=== PATIENT | female | born 1995 | race Caucasian/White ===

== ENCOUNTER 2022-04-15 16:09 | Outpatient (CLI) | payer MEDICAID ==
[~2022-04-15] VITALS: Ht 170.2 cm; Wt 130.9 kg
--- NOTE | 2022-04-15 16:15 | NUR ---
1615 - PATIENT AMBULATORY TO LR6. PATIENT REPORTS TO UNIT FROM CLINIC AFTER VISITING CLINIC FOR HYPEREMESIS. CLINIC CALLED UNIT WITH REPORT AND ORDERS PRIOR TO PATIENT ARRIVAL. PATIENT ARRIVES TO UNIT WITH [employer] MEAL AND SONIC DRINK IN HAND. 1620 - PATIENT ORIENTED TO ROOM. PATIENT CHANGES INTO GOWN. PLAN OF CARE REVIEWED. PATIENT TEARFUL. PATIENT REPORTS RECEIVING IVF DAILY FOR HYPEREMESIS [facility]IA [facility] IN [place] PRIOR TO MOVING TO [place]. PATIENT ALSO REPORTS RECEIVING FEEDINGS VIA NG TUBE FOR HYPEREMESIS IN [place]. 1624 - PATIENT ON MONITOR. IV STARTED AND LR INITIATED ORDERED. CARE ONGOING.
[2022-04-15] MEDS ORDERED: LAMICTAL150 MG PO (16:27)
[2022-04-15] MEDS ORDERED: ZOLOFT 100MG100 MG PO (16:27)
[2022-04-15] MEDS ORDERED: MIRTAZAPINE7.5 MG PO (16:28)
[2022-04-15 16:58] VITALS: BP 125/62; PULSE 101
--- NOTE | 2022-04-15 17:15 | NUR ---
1715 - MD ROSCOE UPDATED ON PATIENT STATUS. STRIP REVIEWED BY . DISCHARGE ORDER RECEIVED.
--- NOTE | 2022-04-15 17:25 | NUR ---
1725 - DISCHARGE INSTRUCTIONS REVIEWED WITH PATIENT AND SPOUSE. QUESTIONS ANSWERED. 1730 - PATIENT AMBULATORY OFF UNIT WITH SPOUSE.
== END 2022-04-15 17:30 | disposition home or self-care (01) ==
LOC: LDRO 16:09
DX: O21.0 Mild hyperemesis gravidarum (principal); Z3A.25 25 weeks gestation of pregnancy
CPT/HCPCS: J2550; J7120

== ENCOUNTER 2022-04-26 08:30 | Outpatient (RCR) | payer MEDICAID ==
[2022-04-19 09:16] VITALS: BP 110/71; PULSE 95; TEMP 98.8
--- NOTE | 2022-04-19 11:30 | NUR ---
Pt requested that IVs be kept in place between EU appts M/W/. Dr Cruz's office was contacted and will send orders that INT may be left in place. After discussion with pt, it is agreed that today's IV will be DC'd due to placement on hand with potential for accidental dislodgement or bumping of site. She agrees, IV DC'd with catheter intact. IV site cares, precautions, and s/s of concerns warrenting pt to contact EU once IV is left in place between visits discussed and pt expresses understanding. Unit phone number provided to pt. She is escorted out of dept with steady gait.
[2022-04-21 08:43] VITALS: BP 130/75; PULSE 99; TEMP 98.4
--- NOTE | 2022-04-21 11:40 | NUR ---
pt infusion finished. per request of pt and per order, iv left in left forearm. IV padded and wrapped in ladonna wrap. pt instructed on home care. will return for next infusion
[2022-04-23 10:07] VITALS: BP 112/77; PULSE 97; TEMP 99.3
--- NOTE | 2022-04-23 12:10 | NUR ---
Previous IV to LFA was DC on arrival due to infiltration. IV to Rt hand removed, site wrapped with coban. Pt ate crackers, peanut butter and ice chips while in EU. She exits dept at this time with steady gait.
[~2022-04-26] VITALS: Ht 170.2 cm; Wt 131.7 kg
[~2022-04-26 08:30] MED LIST: LAMICTAL150 MG PO; MIRTAZAPINE7.5 MG PO; ZOLOFT 100MG100 MG PO
[2022-04-26 08:44] VITALS: BP 119/77; PULSE 99; TEMP 98.7
[2022-04-26] MEDS ORDERED: PHENERGAN25 MG RC (08:48)
--- NOTE | 2022-04-26 10:51 | NUR ---
IV site padded and wrapped with APOORVA wrap per pt's request to leave site in. She rested through infusion, states she is feeling slightly better after fluids. She exits dept with steady gait.
--- NOTE | 2022-04-28 10:04 | NUR ---
Pt did not show for today's scheduled appt.Unable to reach pt.Message left for pt.
--- NOTE | 2022-04-28 16:33 | NUR ---
Pt did not show for this am 0830 apt time.Attempted to reach patient.Pt was discharge Tuesday with PIV in place.Message left for pt to return call.At aproximately 1130, pt returned call.Per pt report she told nurse on Tuesday she had to work but was "unsure of her schedule and possibly would not make today's apt." Pt requests to cancel Tuesday's apt.Per pt she will call to schedule further appointments.Attempted to explain pt is scheduled on TUE,Tue, and Fridays. This nurse explained to patient that a PIV was left in place and would need to be assessed and flushed.Per patient reports she has been flushing IV at home.When attempting to clarifiy with patient what she has been flushing INT with,she reports she had stuff from previous infusions at another facility.I explained to patient that we do not have orders from her current physician to do this and INT would need to be removed f no further appointments scheduled until patient's calls back. Pt reports she "will just remove it herself." Encouraged pt to return to hospital after she gets off work today to remove PIV.Pt reports she gets off work at 830pm tonight and she will go to ED department to request INT removed.
--- NOTE | 2022-04-29 14:15 | NUR ---
Order received via fax from office to hold infusions.To the best of my knowlegde pt did not come to have INT removed as arranged by me with pt yesterday.Message left on pt phone this am to clarify if she came to ED to have it removed, no callback received.Message left with office in reference to IV site. Will await callback.
== END 2022-04-29 14:25 | disposition home or self-care (01) ==
LOC: EUO 08:30
DX: Z51.81 Encounter for therapeutic drug level monitoring (principal)
CPT/HCPCS: J2550; J7120

== ENCOUNTER 2022-05-27 22:45 | Outpatient (CLI) | payer MEDICAID ==
[~2022-05-27] VITALS: Ht 170.2 cm; Wt 130.9 kg
[~2022-05-27 22:45] MED LIST changes: +PHENERGAN25 MG RC
--- NOTE | 2022-05-27 23:00 | NUR ---
2300- PT PRESENTS TO LDR COMPLAINING OF NAUSEA AND VOMITTING, TO ROOM LR2 PER WHEELCHAIR, CHANGED INTO GOWN. 2321- EFM X2 APPLIED. PT DENIES LEAKING FLUID, VAGINAL BLEEDING, OR CONTRACTIONS. STATE SHE IS FEELING BABY MOVE NORMAL. PLAN OF CARE DISCUSSED AND QUESTIONS ANSWERED. PT STATES SHE JUST ARRIVED HOME TODAY FROM [place] ON A PLANE. STATES SHE WAS HOSPITALIZED WITH [facility]PT[facility] PNEUMONIA IN [place] FROM 05/09 UNTIL 05/14. SHE STATES SHE HAS NOT BEEN ABLE TO KEEP FOOD DOWN FOR 3 DAYS AND FLUIDS FOR THE LAST DAY. 2345- DR BULL UPDATED CHARTED, ORDERS RECEIVED. 2355- NURSE AT BEDSIDE, MONITORS ADJUSTED. DIFFICULT TO OBTAIN CONTINUOUS TRACING DUE TO MATERNAL HABITUS AND POSITION. PT HAD EPISODE OF GREEN BILIOUS VOMITTING. CLEAN GOWN PROVIDED. 0020- PT UP TO THE BATHROOM BEFORE IV ATTEMPT. STATES SHE FEELS LIKE SHE IS GOING TO HAVE DIARRHEA. 0028- PT BACK TO BED AND MONITORS ADJUSTED. 0030- IV ATTEMPT X2 UNSUCCESSFUL BY THIS RN. [employer] MACHINE OPERATOR NOTIFIED FOR HELP WITH IV START. PT HAS EPISODE OF GREEN BILIOUS VOMIT. CLEAN GOWN PROVIDED. 0045- MILADYS, [employer] MACHINE OPERATOR AT BEDSIDE TO ATTEMPT IV. UNSUCCESSFUL X3. 0055- [place] AT BEDSIDE FOR IV START. 0100- IV START TO RIGHT AC X1, BLOOD DRAWN FOR LABS. LR BOLUS INFUSING ORDERED. 0120- IV MEDS, ZOFRAN AND PROTONIX GIVEN ORDERED. MONITORS ADJUSTED. 0215- NURSE TO BEDSIDE. PT REPORTS NAUSEA IS IMPROVING BUT STILL PRESENT. SHE ALSO STATES SHE IS FEELING COLD. BLANKET PROVIDED. AXILLARY TEMP 100.5. 0220- DR BULL UPDATED ON PT NAUSEA AND TEMP, ORDERS RECEIVED. 0245- SECOND BAG OF LR INFUSING ORDERED. MONITORS ADJUSTED. DIFFICULT TO OBTAIN CONTINUOUS TRACING DUE TO MATERNAL HABITUS AND POSITION. PLAN OF CARE DISCUSSED WITH PT AND QUESTIONS ANSWERED. 0330- IV PHENERGAN GIVEN ORDERED. PT REPORTS HER NAUSEA IS STILL PRESENT. MONITORS ADJUSTED. 0405- NASAL SWAB FOR COVID, FLU, AND RSV OBTAINED AND SENT TO LAB. PT SITTING UP IN BED AND WILL NOT LIE BACK TO OBTAIN HEART TONES AT THIS TIME. STATES SHE IS "TOO UNCOMFORTABLE." WILL TRY AGAIN. 0435- NURSE TO BEDSIDE. PT LYING ON RIGHT SIDE. MONITORS ADJUSTED. DIFFICULT TO OBTAIN CONTINUOUS STRIP DUE TO MATERNAL HABITUS AND POSITION. 0450- NURSE AT BEDSIDE. MONITORS ADJUSTED. PT REPORTS IMPROVEMENT IN NAUSEA. NO FURTHER EPISODES OF VOMITTING. 0513- DR BULL REVIEWS STRIP AND LABS. SHE IS UPDATED ON PT NAUSEA IMPROVED. ORDER FOR PT TO BE DISMISSED. 0515- PT OFF MONITOR FOR DISMISSAL. SHE IS CALLING HER FOR A RIDE. 0530- DR BULL CALLS THIS NURSE FROM THE DESK AND STATES THE PT IS READY FOR DISMISSAL. INFORMED HER I WILL BE IN AFTER FINISHING GIVING MEDICATIONS IN ANOTHER ROOM. 0535- NURSE TO DESK AND DR BULL STATES THE PT HAS LEFT. THE PT WAS TIRED OF WAITING FOR HER DISCHARGE INSTRUCTIONS. SHE STATED THAT THE NURSE "MET MY AND HE IS PISSED. SO I DON'T NEED ANY PAPERWORK, I JUST HAVE TO LEAVE." PT WALKS OUT WITHOUT RECEIVING ANY DISCHARGE PAPERWORK. DR BULL STATES SHE DID MAKE SURE TO REMIND PT THAT DR MALHOTRA WOULD LIKE HER TO KEEP HER OFFICE VISIT TODAY.
[2022-05-27 23:30] VITALS: BP 113/64; PULSE 126; TEMP 99.1
[2022-05-28] VITALS (8 sets, daily range): BP systolic 107–141; BP diastolic 54–95; PULSE 114–127; TEMP 100.5
[2022-05-28 01:17] LABS: BASO % 0.2 % (0.0-2.0); EOS % 0.1 % (0.0-4.0); GRAN # 11.5 K/mm3 (1.4-6.5); GRAN % 88.5 % (42.2-75.2); HEMATOCRIT 41.7 % (37.0-47.0); HEMOGLOBIN 13.9 g/dl (12.5-16.0); LYMPH # 0.8 K/mm3 (1.2-3.4); LYMPH % 5.9 % (20.0-51.0); MEAN CELL VOLUME 86 fl (80.0-100.0); MEAN CORPUSCULAR HEMOGLOBIN 29 pg (27-31); MEAN CORPUSCULAR HGB CONC 33 g/dl (33.0-37.0); MEAN PLATELET VOLUME 9.9 fl (7.4-10.4); MONO # 0.6 K/mm3 (0.1-0.6); MONO % 4.9 % (1.7-9.3); PLATELET COUNT 302 K/mm3 (130-400); RED BLOOD COUNT 4.88 M/mm3 (4.10-5.30); REDCELL DISTRIBUTION WIDTH-CV 14.4 % (11.5-14.5)
[2022-05-28 01:32] LABS: BILIRUBIN,TOTAL 0.6 mg/dL (0.2-1.2); CALCIUM 9.1 mg/dL (8.4-10.2); CREATININE, serum 0.62 mg/dL (0.57-1.11); POTASSIUM 3.4 mmol/L (3.5-4.5); TOTAL PROTEIN 6.7 gm/dL (6.2-8.1)
== END 2022-05-28 05:35 | disposition home or self-care (01) ==
LOC: LDRO 22:45 → LDR 23:48 → LDRO 05-28 05:35
PROVIDERS: Student in an Organized Health Care Education/Training Program
DX: O26.893 Other specified pregnancy related conditions, third trimester (principal); R10.9 Unspecified abdominal pain; Z20.822 Contact with and (suspected) exposure to COVID-19; Z3A.32 32 weeks gestation of pregnancy
CPT/HCPCS: OP; C9113; J2405; J2550; J7120

== ENCOUNTER 2022-06-03 11:00 | Outpatient (RCR) | payer MEDICAID ==
--- NOTE | 2022-05-31 12:38 | NUR ---
THIS RN ASSESSING FHR STRIP AND PT. PT STATES NO VAGINAL BLEEDING, NO REGULAR CONTRACTIONS, NO LEAKING OF FLUID, AND FEELING BABY MOVE WELL. MOVEMENTS FROM FETUS AUDIBLE ON FHR MONITOR.
--- NOTE | 2022-05-31 13:50 | NUR ---
Reviewed appointments and times with pt.pt verbalizes apt times work with her work schedule.Apt car provided with contact number in case pt needs to rearrange apt.Pt discharged via ambulatory.
[~2022-06-03] VITALS: Ht 170.2 cm; Wt 135.0 kg
[2022-06-03 11:16] VITALS: BP 125/82; PULSE 109
== END 2022-06-04 09:19 | disposition home or self-care (01) ==
LOC: EUO 11:00
DX: Z51.81 Encounter for therapeutic drug level monitoring (principal)
CPT/HCPCS: J7120

== ENCOUNTER 2022-06-21 11:00 | Outpatient (RCR) | payer MEDICAID ==
[2022-06-07 11:36] VITALS: BP 107/66; PULSE 100; TEMP 98.8
--- NOTE | 2022-06-07 12:10 | NUR ---
PT PLACED ON EFM AND TOCO MONITORING. PT DENIES BLEEDING, DENIES LEAKING OF FLUID, DENIES CONTRACTIONS, AND DENIES DECREASED MOVEMENT.
--- NOTE | 2022-06-07 13:37 | NUR ---
Pt discharged at approx 1335. Pt tolerated IVF well and continued to take oral po fluids during infusion. pt asked me at the end of the infusion if promethazine had been added to her bag of LR, it had not since there was no order for it from her primary care provider. pt stated that she would follow up with PCP to get order for promethzine. otherwise, she was free from concerns or complaints at time of discharge and ambulated independently to car. L&D RN was able to get heart tones on her prior to discharge as well.
[~2022-06-21] VITALS: Ht 170.2 cm; Wt 133.8 kg
[2022-06-21 11:25] VITALS: BP 119/65; PULSE 97; TEMP 98.7
--- NOTE | 2022-06-21 13:30 | NUR ---
Pt tolerated infusion well, states she feels better after fluids. She has tolerated glass of water, jello and crackers while in EU. She exits dept with steady gait. IV was DC'd, site wrapped with coban.
== END 2022-07-01 11:58 | disposition home or self-care (01) ==
LOC: EUO 11:00
DX: Z79.899 Other long term (current) drug therapy (principal)
CPT/HCPCS: J7120

== ENCOUNTER 2023-02-06 11:09 | Emergency (ER) | payer MEDICAID ==
[~2023-02-06] VITALS: Ht 170.2 cm; Wt 136.4 kg
[2023-02-06 11:14] VITALS: TEMP 98.1
[2023-02-06 12:08] LABS: BASO % 0.3 % (0.0-2.0); EOS # 0.1 K/mm3 (0.0-0.7); EOS % 0.6 % (0.0-4.0); GRAN # 8.5 K/mm3 (1.4-6.5); HEMATOCRIT 42.6 % (37.0-47.0); LYMPH # 2.6 K/mm3 (1.2-3.4); LYMPH % 22.1 % (20.0-51.0); MEAN CELL VOLUME 86 fl (80.0-100.0); MEAN CORPUSCULAR HEMOGLOBIN 28 pg (27-31); MEAN CORPUSCULAR HGB CONC 33 g/dl (33.0-37.0); MEAN PLATELET VOLUME 10.2 fl (7.4-10.4); MONO # 0.6 K/mm3 (0.1-0.6); MONO % 4.7 % (1.7-9.3); PLATELET COUNT 309 K/mm3 (130-400); RED BLOOD COUNT 4.97 M/mm3 (4.10-5.30); REDCELL DISTRIBUTION WIDTH-CV 14.8 % (11.5-14.5)
[2023-02-06 12:51] LABS: ALBUMIN 3.7 gm/dL (3.5-5.0); BILIRUBIN,TOTAL 0.3 mg/dL (0.2-1.2); CALCIUM 9.5 mg/dL (8.4-10.2); CREATININE, serum 0.64 mg/dL (0.57-1.11); POTASSIUM 4.1 mmol/L (3.5-4.5); TOTAL PROTEIN 7.7 gm/dL (6.2-8.1)
[2023-02-06 14:26] LABS: COLLECTION METHOD CLEAN CATCH
[2023-02-06 14:37] VITALS: BP 117/66; PULSE 73
[2023-02-06 15:06] LABS: URINE APPEARANCE Cloudy (CLEAR/HAZY); URINE BACTERIA Moderate /hpf (NONE SEEN); URINE BLOOD Negative (NEGATIVE); URINE COLOR Yellow (YELLOW); URINE GLUCOSE Negative (NEGATIVE); URINE KETONE Negative (NEGATIVE); URINE NITRATE Negative (NEGATIVE); URINE PROTEIN(semi-quant) Negative (NEGATIVE); URINE UROBILINOGEN 0.2 E.U/dL (0.2-1.0)
[2023-02-06] MEDS ORDERED: CEPHALEXIN500 M1 PO (15:10)
== END 2023-02-06 14:43 | disposition home or self-care (01) ==
LOC: COL.ER 11:09
PROVIDERS: Physician Assistant
DX: O21.0 Mild hyperemesis gravidarum (principal); O99.281 Endocrine, nutritional and metabolic diseases complicating pregnancy, first trimester; E86.0 Dehydration; Z3A.10 10 weeks gestation of pregnancy
CPT/HCPCS: J2765; J7030